=== PATIENT | female | born 1960 | race African-American/Black ===

== ENCOUNTER 2024-07-25 20:05 | Emergency (ER) | payer OTHER ==
[~2024-07-25] VITALS: Ht 165.1 cm; Wt 46.0 kg
[2024-07-25 20:14] VITALS: O2SAT 98
[2024-07-25] MEDS: IBUPROFEN 600MG TABLET PO ONE (20:57)
[2024-07-25 21:50] VITALS: BP 145/88; PULSE 79; RESP 16; TEMP 36.78072; O2SAT 98
== END 2024-07-25 21:52 ==
LOC: ER 20:05
DX: M25.512 Pain in left shoulder (principal); F17.200 Nicotine dependence, unspecified, uncomplicated; I10 Essential (primary) hypertension; J44.9 Chronic obstructive pulmonary disease, unspecified; Z98.890 Other specified postprocedural states
CPT/HCPCS: 70486; 73030; 99291